=== PATIENT | female | born 1995 | race Caucasian/White ===

== ENCOUNTER 2023-04-05 20:13 | Emergency (ER) | payer SELFPAY ==
[~2023-04-05] VITALS: Ht 165.1 cm; Wt 127.3 kg
[2023-04-05 20:28] VITALS: TEMP 99.3
[2023-04-05] MEDS ORDERED: Ondansetron 4 MG/2 ML VIAL IV ONE (21:00)
[2023-04-05] MEDS ORDERED: Morphine 4 MG/ML VIAL IV PRN (21:00)
[2023-04-05] MEDS ORDERED: NS 1,000 ML IV ONE (21:00)
[2023-04-05 21:56] LABS: BASO % 0.3 % (0.0-2.0); EOS # 0.1 K/mm3 (0.0-0.7); EOS % 0.7 % (0.0-4.0); GRAN # 10.1 K/mm3 (1.4-6.5); GRAN % 80.7 % (42.2-75.2); HEMATOCRIT 41.5 % (37.0-47.0); HEMOGLOBIN 13.8 g/dl (12.5-16.0); LYMPH # 1.1 K/mm3 (1.2-3.4); LYMPH % 8.4 % (20.0-51.0); MEAN CELL VOLUME 78 fl (80.0-100.0); MEAN CORPUSCULAR HEMOGLOBIN 26 pg (27-31); MEAN CORPUSCULAR HGB CONC 33 g/dl (33.0-37.0); MEAN PLATELET VOLUME 9.2 fl (7.4-10.4); MONO # 1.2 K/mm3 (0.1-0.6); MONO % 9.4 % (1.7-9.3); PLATELET COUNT 373 K/mm3 (130-400)
[2023-04-05 22:16] LABS: BILIRUBIN,TOTAL 0.7 mg/dL (0.2-1.2); CALCIUM 9.5 mg/dL (8.4-10.2); CREATININE, serum 0.84 mg/dL (0.57-1.11); POTASSIUM 3.4 mmol/L (3.5-4.5); TOTAL PROTEIN 7.9 gm/dL (6.2-8.1)
[2023-04-05] MEDS ORDERED: Iohexol 300 - 100 ML VIAL IV ONE (23:14)
[2023-04-05] MEDS ORDERED: NS 50 ML IV SCH (23:15)
[2023-04-05 23:20] LABS: URINE APPEARANCE CLEAR (CLEAR/HAZY); URINE BLOOD NEGATIVE (NEGATIVE); URINE COLOR Dark Yellow (YELLOW); URINE GLUCOSE NEGATIVE (NEGATIVE); URINE KETONE 1+ (NEGATIVE); URINE NITRATE NEGATIVE (NEGATIVE); URINE PROTEIN(semi-quant) 1+ (NEGATIVE)
[2023-04-05 23:37] LABS: COLLECTION METHOD CLEAN CATCH
[2023-04-06 00:27] VITALS: BP 138/68; PULSE 78
[2023-04-06] MEDS ORDERED: Lidocaine 2% (20 MG/ML) 20 ML UROJET TOP ONE (23:45)
[2023-04-07] MEDS ORDERED: ZOFRAN ODT4 MG PO (08:37)
[2023-04-07] MEDS ORDERED: NORCO 325 MG-51 TAB PO (08:37)
[2023-04-07] MEDS ORDERED: PAXLOVID CO-PA1 EACH PO (08:37)
[2023-04-09] MEDS ORDERED: AMOXICILLIN 8751 TAB PO (03:01)
== END 2023-04-06 00:27 | disposition home or self-care (01) ==
LOC: COL.ER 20:13
PROVIDERS: Personal Emergency Response Attendant
DX: B37.31 Acute candidiasis of vulva and vagina (principal); E87.6 Hypokalemia; Z90.49 Acquired absence of other specified parts of digestive tract
CPT/HCPCS: J2270; J2405; J7030; Q9967

== ENCOUNTER 2023-04-07 07:01 | Emergency (ER) | payer SELFPAY ==
[~2023-04-07] VITALS: Ht 165.1 cm; Wt 127.3 kg
[2023-04-07] MEDS ORDERED: LR 1,000 ML IV ONE (07:45)
[2023-04-07] MEDS ORDERED: Ondansetron 4 MG/2 ML VIAL IV ONE (07:45)
[2023-04-07] MEDS ORDERED: LORazepam 2 MG/ML 1 ML VIAL IV ONE (07:45)
[2023-04-07 07:50] LABS: BASO # 0.1 K/mm3 (0.0-0.2); BASO % 0.5 % (0.0-2.0); EOS # 0.1 K/mm3 (0.0-0.7); EOS % 0.9 % (0.0-4.0); GRAN # 7.1 K/mm3 (1.4-6.5); GRAN % 64.4 % (42.2-75.2); HEMATOCRIT 45.1 % (37.0-47.0); HEMOGLOBIN 14.8 g/dl (12.5-16.0); LYMPH # 2.4 K/mm3 (1.2-3.4); LYMPH % 22.3 % (20.0-51.0); MEAN CELL VOLUME 79 fl (80.0-100.0); MEAN CORPUSCULAR HEMOGLOBIN 26 pg (27-31); MEAN CORPUSCULAR HGB CONC 33 g/dl (33.0-37.0); MEAN PLATELET VOLUME 9.2 fl (7.4-10.4); MONO # 1.3 K/mm3 (0.1-0.6); MONO % 11.5 % (1.7-9.3); PLATELET COUNT 399 K/mm3 (130-400); RED BLOOD COUNT 5.73 M/mm3 (4.10-5.30); REDCELL DISTRIBUTION WIDTH-CV 15.2 % (11.5-14.5)
[2023-04-07 08:11] LABS: ALBUMIN 4.3 gm/dL (3.5-5.0); BILIRUBIN,TOTAL 0.6 mg/dL (0.2-1.2); CREATININE, serum 0.87 mg/dL (0.57-1.11); MAGNESIUM 2.1 mg/dL (1.6-2.6); POTASSIUM 3.5 mmol/L (3.5-4.5); TOTAL PROTEIN 8.6 gm/dL (6.2-8.1)
[2023-04-07 08:17] LABS: TROPONIN-I 0.013 ng/mL (0.00-0.033)
[2023-04-07] MEDS ORDERED: NORCO 325 MG-51 TAB PO (08:37)
[2023-04-07] MEDS ORDERED: PAXLOVID CO-PA1 EACH PO (08:37)
[2023-04-07] MEDS ORDERED: ZOFRAN ODT4 MG PO (08:37)
[2023-04-07 08:50] VITALS: BP 128/81; PULSE 66; TEMP 98.6
[2023-04-09] MEDS ORDERED: AMOXICILLIN 8751 TAB PO (03:01)
== END 2023-04-07 08:50 | disposition home or self-care (01) ==
LOC: COL.ER 07:01
PROVIDERS: Family Medicine
DX: U07.1 COVID-19 (principal); M54.6 Pain in thoracic spine; R07.89 Other chest pain; R06.02 Shortness of breath; R11.10 Vomiting, unspecified; R05.9 Cough, unspecified; F17.200 Nicotine dependence, unspecified, uncomplicated; Z28.310 Unvaccinated for COVID-19
CPT/HCPCS: J2060; J2405; J7120

== ENCOUNTER 2023-06-09 02:04 | Emergency (ER) | payer SELFPAY ==
[~2023-06-09] VITALS: Ht 165.1 cm; Wt 127.3 kg
[~2023-06-09 02:04] MED LIST: AMOXICILLIN 8751 TAB PO; NORCO 325 MG-51 TAB PO; PAXLOVID CO-PA1 EACH PO; ZOFRAN ODT4 MG PO
[2023-06-09] MEDS ORDERED: Ondansetron 4 MG/2 ML VIAL IV ONE (02:15)
[2023-06-09] MEDS ORDERED: NS 1,000 ML IV ONE ×2 (02:15→04:15)
[2023-06-09 02:28] LABS: HEMATOCRIT 42.1 % (37.0-47.0); MEAN CELL VOLUME 79 fl (80.0-100.0); MEAN CORPUSCULAR HEMOGLOBIN 26 pg (27-31); MEAN CORPUSCULAR HGB CONC 33 g/dl (33.0-37.0); MEAN PLATELET VOLUME 9.4 fl (7.4-10.4); PLATELET COUNT 506 K/mm3 (130-400); RED BLOOD COUNT 5.33 M/mm3 (4.10-5.30); REDCELL DISTRIBUTION WIDTH-CV 14.6 % (11.5-14.5)
[2023-06-09 02:58] LABS: ALANINE AMINOTRANSFERASE 30 U/L (0-55); ALBUMIN 4.7 g/dL (3.5-5.0); ALKALINE PHOSPHATASE 52 U/L (40-150); ANION GAP 16 mmol/L (7-16); AST,SGOT 33 U/L (5-34); BILIRUBIN,TOTAL 1.3 mg/dL (0.2-1.2); BLOOD UREA NITROGEN 13 mg/dL (7-19); CALCIUM 10.2 mg/dL (8.4-10.2); CHLORIDE 102 mEq/L (98-107); CREATININE, serum 0.92 mg/dL (0.57-1.11); GLUCOSE 109 mg/dL (70-99); LIPASE 30 U/L (8-78); POTASSIUM 3.2 mEq/L (3.5-4.5); SODIUM 137 mEq/L (136-145); TOTAL PROTEIN 8.6 g/dl (6.2-8.1)
[2023-06-09] MEDS ORDERED: LORazepam 2 MG/ML 1 ML VIAL IV ONE (03:00)
[2023-06-09 03:04] LABS: TROPONIN-I < 0.010 ng/mL (0.00-0.033)
[2023-06-09 03:19] LABS: COLLECTION METHOD CLEAN CATCH
[2023-06-09 03:40] LABS: PH 5.5 (5.0-8.5); URINE APPEARANCE CLOUDY (CLEAR/HAZY); URINE BLOOD 1+ (NEGATIVE); URINE COLOR YELLOW (YELLOW); URINE GLUCOSE NEGATIVE (NEGATIVE); URINE KETONE 4+ (NEGATIVE); URINE NITRATE NEGATIVE (NEGATIVE); URINE PROTEIN(semi-quant) 3+ (NEGATIVE)
[2023-06-09 03:54] LABS: TRICYCLIC ANTIDEPRESS URINE NEGATIVE (NEGATIVE)
[2023-06-09 04:24] LABS: BAND 1 % (0-10); LYMPHOCYTE 13 % (20.0-51.0); NEUTROPHILS 80 % (42.0-75.2); PLATELET ESTIMATE INCREASED (NORMAL)
[2023-06-09] MEDS ORDERED: Iohexol 300 - 100 ML VIAL IV ONE (04:53)
[2023-06-09] MEDS ORDERED: NS 50 ML IV ONE (04:54)
[2023-06-09] MEDS ORDERED: ZOFRAN ODT4 MG PO (05:09)
[2023-06-09 05:31] VITALS: BP 145/85; PULSE 72; TEMP 98.4
[2023-06-10] MEDS ORDERED: PRIL40 PO (20:42)
[2023-06-10] MEDS ORDERED: REGLAN 10MG10 MG/TAB PO (20:42)
== END 2023-06-09 05:31 | disposition home or self-care (01) ==
LOC: COL.ER 02:04
PROVIDERS: Emergency Medicine
DX: F41.9 Anxiety disorder, unspecified (principal); E86.0 Dehydration; F12.90 Cannabis use, unspecified, uncomplicated; R55 Syncope and collapse; R11.2 Nausea with vomiting, unspecified
CPT/HCPCS: J0780; J2060; J2405; J7030; Q9967

== ENCOUNTER 2023-06-09 13:22 | Emergency (ER) | payer SELFPAY ==
[~2023-06-09] VITALS: Ht 165.1 cm; Wt 127.3 kg
[2023-06-09 13:29] VITALS: TEMP 98.1
[2023-06-09] MEDS ORDERED: LR 1,000 ML IV ONE (14:00)
[2023-06-09] MEDS ORDERED: LORazepam 2 MG/ML 1 ML VIAL IV ONE (14:00)
[2023-06-09] MEDS ORDERED: Pantoprazole 40 MG in NS 10 ML IV ONE (14:00)
[2023-06-09] MEDS ORDERED: droPERidol 2.5 MG/ML 2 ML VIAL IV ONE (14:00)
[2023-06-09 14:03] LABS: HEMATOCRIT 42.4 % (37.0-47.0); HEMOGLOBIN 14.4 g/dl (12.5-16.0); MEAN CELL VOLUME 78 fl (80.0-100.0); MEAN CORPUSCULAR HEMOGLOBIN 27 pg (27-31); MEAN CORPUSCULAR HGB CONC 34 g/dl (33.0-37.0); MEAN PLATELET VOLUME 9.6 fl (7.4-10.4); PLATELET COUNT 524 K/mm3 (130-400); RED BLOOD COUNT 5.44 M/mm3 (4.10-5.30); REDCELL DISTRIBUTION WIDTH-CV 14.6 % (11.5-14.5)
[2023-06-09 14:17] LABS: ALBUMIN 4.6 g/dL (3.5-5.0); BILIRUBIN,TOTAL 1.1 mg/dL (0.2-1.2); CALCIUM 9.6 mg/dL (8.4-10.2); CREATININE, serum 0.88 mg/dL (0.57-1.11); POTASSIUM 3.1 mEq/L (3.5-4.5); TOTAL PROTEIN 8.3 g/dl (6.2-8.1)
[2023-06-09 14:29] LABS: LYMPHOCYTE 15 % (20.0-51.0); MICROCYTOSIS 1+; NEUTROPHILS 76 % (42.0-75.2); PLATELET ESTIMATE INCREASED (NORMAL)
[2023-06-09] MEDS ORDERED: Magnesium Sulfate 4% 50 ML IV ONE (15:15)
[2023-06-09] MEDS ORDERED: Mag/Al Hydrox/Simeth Susp 30 ML CUP PO ONE (16:15)
[2023-06-09 18:45] VITALS: BP 110/61; PULSE 82
[2023-06-10] MEDS ORDERED: REGLAN 10MG10 MG/TAB PO (20:42)
[2023-06-10] MEDS ORDERED: PRIL40 PO (20:42)
== END 2023-06-09 18:45 | disposition home or self-care (01) ==
LOC: COL.ER 13:22
PROVIDERS: Emergency Medicine
DX: R10.84 Generalized abdominal pain (principal); R11.2 Nausea with vomiting, unspecified; D72.829 Elevated white blood cell count, unspecified; E66.9 Obesity, unspecified; Z90.49 Acquired absence of other specified parts of digestive tract; Z68.42 Body mass index [BMI] 45.0-49.9, adult
CPT/HCPCS: C9113; J1790; J2060; J3475; J7120

== ENCOUNTER 2023-06-10 12:48 | Emergency (ER) | payer SELFPAY ==
[~2023-06-10] VITALS: Ht 165.1 cm; Wt 127.3 kg
[2023-06-10 13:04] VITALS: TEMP 98.1
[2023-06-10] MEDS ORDERED: diphenhydrAMINE 50 MG/ML 1 ML VIAL IV ONE ×2 (13:45→17:15)
[2023-06-10] MEDS ORDERED: LORazepam 2 MG/ML 1 ML VIAL IV ONE ×2 (13:45→17:15)
[2023-06-10] MEDS ORDERED: Pantoprazole 40 MG in NS 10 ML IV ONE (13:45)
[2023-06-10] MEDS ORDERED: droPERidol 2.5 MG/ML 2 ML VIAL IV ONE (13:45)
[2023-06-10] MEDS ORDERED: LR 1,000 ML IV ONE (14:00)
[2023-06-10] MEDS ORDERED: Ondansetron 4 MG/2 ML VIAL IV ONE (14:45)
[2023-06-10] MEDS ORDERED: dexAMETHasone 10 MG/ML VIAL IV ONE (17:15)
[2023-06-10] MEDS ORDERED: Ketorolac 30 MG/ML VIAL IV ONE (17:15)
[2023-06-10] MEDS ORDERED: Magnesium Sulfate 4% 50 ML IV ONE ×2 (17:15)
[2023-06-10] MEDS ORDERED: Mag/Al Hydrox/Simeth Susp 30 ML CUP PO ONE (19:30)
[2023-06-10] MEDS ORDERED: PRIL40 PO (20:42)
[2023-06-10] MEDS ORDERED: REGLAN 10MG10 MG/TAB PO (20:42)
[2023-06-10 21:01] VITALS: BP 155/89; PULSE 79
== END 2023-06-10 21:01 | disposition home or self-care (01) ==
LOC: COL.ER 12:48
DX: G43.011 Migraine without aura, intractable, with status migrainosus (principal); E86.0 Dehydration; K21.9 Gastro-esophageal reflux disease without esophagitis; Z87.891 Personal history of nicotine dependence; Z90.49 Acquired absence of other specified parts of digestive tract
CPT/HCPCS: C9113; J1100; J1200; J1790; J1885; J2060; J2405; J2765; J3475; J7120